=== PATIENT | male | born 1980 | race Caucasian/White ===

== ENCOUNTER 2016-11-29 09:18 | Inpatient (IN) | payer BC ==
[2016-11-29] MEDS ORDERED: Ibuprofen 200 MG TAB PO PRN (09:47)
[2016-11-29 09:57] VITALS: BMI 20.2
[2016-11-29] MEDS ORDERED: DIPHENHYDRAMINE HCL IVPB SCH (10:15)
[2016-11-29] MEDS ORDERED: SODIUM CHLORIDE 0.9% IVP SCH (10:15)
[2016-11-29] MEDS ORDERED: SODIUM CHLORIDE IVPB SCH (10:15)
[2016-11-29] MEDS ORDERED: RITUXIMAB IVPB SCH (10:15)
[2016-11-29] MEDS ORDERED: SODIUM CHLORIDE 0.9% IVPB SCH (10:15)
[2016-11-29] MEDS ORDERED: Famotidine/PF 20 mg/2ml Vial SLOW IVP SCH (10:15)
[2016-11-29] MEDS ORDERED: DEXAMETHASONE IVP SCH (10:15)
[2016-11-29] MEDS ORDERED: ONDANSETRON IVP SCH (10:15)
[2016-11-29] MEDS ORDERED: ADMIXTURE FEE IVPB SCH (10:15)
[2016-11-29] MEDS ORDERED: predniSONE 20 MG TAB PO SCH (10:45)
[2016-11-29] MEDS ORDERED: Ondansetron HCl/PF 8 MG in Sodium Chloride 0.9% 50 ML IVPB PRN (11:21)
[2016-11-29] MEDS ORDERED: Ondansetron ODT 8 MG TAB PO PRN (11:21)
[2016-11-29] MEDS ORDERED: Ondansetron ODT 4 MG TAB PO PRN (11:21)
[2016-11-29 11:36] LABS: #Lymphocytes 1.5 thou/uL (1.20-3.40); #Monocytes 0.3 thou/uL (0.11-0.59); #Neutrophils 2.6 thou/uL (1.40-6.50); %Basophils 0.4 % (0.0-1.0); %Eosinophils 0.7 % (0.0-10.0); %Lymphocytes 34.1 % (21.0-51.0); %Monocytes 7.5 % (0.0-10.0); Hematocrit 45.5 % (42.0-52.0); Mean Platelet Volume 6.6 fL (7.4-10.4); Red Blood Cell (RBC) Count 4.71 mill/uL (4.70-6.10); White Blood Cell (WBC) Count 4.5 thou/uL (4.8-10.8)
[2016-11-29] MEDS: Sulfameth/Trimethoprim DS 800-160mg TAB PO SCH (11:42)
[2016-11-29 12:08] LABS: ALT (SGPT) 14 U/L (8-55); AST (SGOT) 22 U/L (5-34); Alkaline Phosphatase 49 U/L (40-150); Anion Gap 13 mmol/L (10-20); BUN (Urea Nitrogen) 12 mg/dL (8.9-20.6); Bilirubin, Total 0.9 mg/dL (0.2-1.2); Calc. Creatinine Clearance 137 mL/min (70-130); Calcium 9.5 mg/dL (7.8-10.44); Carbon Dioxide 24 mmol/L (22-29); Chloride 106 mmol/L (98-107); Estimated GFR-MDRD Greater than 90; Globulin 3.3 g/dL (2.4-3.5); LDH 213 U/L (125-220); Protein, Total 7.8 g/dL (6.0-8.3)
--- NOTE | 2016-11-29 12:18 | HP ---
REASON FOR ADMISSION: Diffuse large B-cell lymphoma. PRIMARY ONCOLOGIST: Jason Asif M.D. HISTORY OF PRESENT ILLNESS: Mr. Wilkinson is a 36-year-old male with a new diagnosis of HIV relate d diffuse large B-cell lymphoma. He has a 1-year history of stable right axillary adenopathy with n o fever, chills or night sweats. He has a history of HIV and has been on antiretroviral treatment s 2012, his recent CD4 count was greater than 500. A biopsy of the right axillary lymph node was done on 11/04/[address] Guo. It was diagnostic for diffuse large B-cell lymphoma with extens nannette necrosis. Ki-67 fraction was greater than 90%. On 11/11/2016, a CT scan of the chest, abdomen, and pelvis showed right axillary adenopathy measuring up to 5.3 cm at the maximum dimension. There were no other significant findings. The patient then had a PET scan performed, which confirmed the right axillary lymphadenopathy. There was some increased intake in the right palatine tonsil with a maximum SUV of 11.1. There was an increased intake of the left palatine tonsil measuring with a m aximum SUV of 4.0. The patient will be admitted today for chemotherapy treatment regimen, called EP OCH-R. PAST MEDICAL HISTORY: 1. Newly diagnosed diffuse large B-cell lymphoma. 2. Human immunodeficiency virus positive in 2012 with excellent control. 3. Mononucleosis in 2011. PAST SURGICAL HISTORY: 1. Right axillary biopsy. 2. MediPort placement. ALLERGIES: TYLENOL. HOME MEDICATIONS: Odefsey daily. FAMILY HISTORY: The patient's sister had breast cancer at age of 32 and is . Both his gran dmother and grandfather had lung cancer. SOCIAL HISTORY: Single, has no children, lives alone. No alcohol, tobacco or illicit drug use. REVIEW OF SYSTEMS: CONSTITUTIONAL: No fever, chills, night sweats, recent weight loss or gain. EYES: No blurred or double vision. ENT: No pain, hoarseness, sore throat, or dysphagia. CARDIOVASCULAR: No chest pain, palpitations or syncope. RESPIRATORY: No shortness of breath, dyspnea on exertion or orthopnea. GASTROINTESTINAL: No nausea, vomiting, diarrhea, constipation or abdominal pain. GENITOURINARY: No dysuria or hematuria. MUSCULOSKELETAL: No joint or back pain. SKIN: No rash or pruritus. HEMATOLOGIC: No bleeding, bruising or clotting. NEUROLOGIC: No weakness, headache, numbness, tingling or seizure activity. LYMPHATIC: Positive for a lump in his right armpit. PHYSICAL EXAMINATION: VITAL SIGNS: Temperature is 98.0, pulse is 91, respiratory rate 18, BP is 126/75. He is 100% on ro om air. GENERAL: Well-developed, well-nourished male in no acute distress. HEENT: Normocephalic, atraumatic. Pupils equal and reactive to light. NECK: Supple without JVD or masses. CARDIOVASCULAR: Regular rate and rhythm. LUNGS: Clear to auscultation. ABDOMEN: Soft, nontender, bowel sounds are positive. There is no organomegaly. EXTREMITIES: No clubbing, cyanosis or edema. SKIN: No rash. HEMATOLOGIC: No petechia or purpura. LYMPH: He has right axillary lymphadenopathy. NEUROLOGICAL: Nonfocal. PSYCHIATRIC: The patient is alert and oriented and appropriate. PERTINENT LABORATORY AND X-RAYS: Pending. ASSESSMENT: 1. Diffuse large B-cell lymphoma. 2. Human immunodeficiency virus positive. DISCUSSION: The patient will begin chemotherapy today. He will be placed on prophylactic Valtrex d aily. He will also have Bactrim on Tuesday, Tuesday, and Tuesday. This is his recommendation of Dr Kelly Gonzalez. We will notify Dr. Gonzalez of his admission. He can be out of bed as tolerated and have a r egular diet. We will add oral antiemetics and Motrin for pain. This treatment regimen is a 5-day r egimen, anticipate discharge on Tuesday once completed.
[2016-11-29] MEDS: SODIUM CHLORIDE 0.9% IVPB SCH (20:30)
[2016-11-29] MEDS: VINCRISTINE SULFATE IVPB SCH (20:30)
[2016-11-29] MEDS: DOXORUBICIN HCL IVPB SCH (20:30)
--- NOTE | 2016-11-29 22:30 | CON ---
DATE OF CONSULTATION: 11/29/2016 HISTORY OF PRESENT ILLNESS: A 36-year-old known to us from prior visits, mostly in the clinic, who has a history of asymptomatic HIV infection for a few years with excellent adherence to antiretrovir al therapy and recently diagnosed with large cell non-Hodgkin's lymphoma. This was identified for r ight axillary lymph node. Patient has completed workup with a PET scan, which showed increased FDG localization in the right axillary and bilateral palatine tonsil lymph nodes, left neck. The patien t had an echocardiogram in preparation for chemotherapy, which showed normal ejection fraction and n ormal LV function, otherwise. The patient was admitted for initiation of chemotherapy. He denies h eadaches, visual symptoms, sore throat, odynophagia, dysphagia, no chest pain, cough or sputum produ ction. No abdominal pain or diarrhea. No genitourinary symptoms. No neurological symptoms. PAST MEDICAL HISTORY: Includes HIV seropositive status, unsuccessful antiretroviral therapy for mor e than 2 years now. He is currently receiving Odefsey. Patient never smoker. PAST SURGICAL HISTORY: Axillary lymph node biopsy, MediPort placement. ALLERGIES: TYLENOL, ACETAMINOPHEN. HOME MEDICATIONS: Odefsey and currently on Bactrim and Valtrex. FAMILY HISTORY: Noncontributory. PHYSICAL EXAMINATION: VITAL SIGNS: Essentially normal. He is afebrile. SKIN: The incision of the right axilla is not remarkable having healed properly. No other skin les ions noted. Peripheral IV access. No Long catheter. No lymphadenopathy other than the axillary r egion. HEENT: Ocular movements are conjugate. Sclerae white. Oral cavity normal. NECK: Supple. LUNGS: Symmetric clear breath sounds. HEART: S1, S2, regular rate. No S3, S4. ABDOMEN: Soft, not distended or tender. No ascites. No bladder distention. EXTREMITIES: No joint inflammatory activity. He moves extremities equally. NEUROLOGIC: Cognitive function appears to be intact. LABORATORY DATA: White cell count 4.5, hemoglobin 15.6, platelets 179 with normal differential. Ch emistry with glucose 116, otherwise normal. His last CD4 cell count from October was 578, less than 20. ASSESSMENT: Longstanding human immunodeficiency virus infection, on antiretroviral therapy with sammy quate viremia suppression and now newly diagnosed large cell non-Hodgkin's lymphoma, starting chemot herapy. DISCUSSION: Patient will continue his antiretroviral therapy with Odefsey as well as Bactrim and Va ltrex prophylaxis and follow through with this course of chemotherapy.
[2016-11-30] MEDS: ODEFSEY PO SCH (08:44)
[2016-11-30] MEDS: predniSONE 20 MG TAB PO SCH (08:45)
[2016-11-30] MEDS: Ondansetron 2MG/ML MDV 10 MG in Sodium Chloride 0.9% 50 ML IVP SCH (17:48)
[2016-11-30] MEDS: VINCRISTINE SULFATE IVPB SCH (23:05)
[2016-11-30] MEDS: DOXORUBICIN HCL IVPB SCH (23:05)
[2016-11-30] MEDS: SODIUM CHLORIDE 0.9% IVPB SCH (23:05)
[2016-12-01] MEDS: Sulfameth/Trimethoprim DS 800-160mg TAB PO SCH (09:53)
[2016-12-01] MEDS: predniSONE 20 MG TAB PO SCH (09:53)
[2016-12-01] MEDS: ODEFSEY PO SCH (10:27)
[2016-12-01] MEDS ORDERED: Polyethylene Glycol 3350 17 GM Packet PO PRN (14:16)
[2016-12-01] MEDS: Ondansetron 2MG/ML MDV 10 MG in Sodium Chloride 0.9% 50 ML IVP SCH (16:35)
[2016-12-01] MEDS: SODIUM CHLORIDE 0.9% IVPB SCH (21:39)
[2016-12-01] MEDS: VINCRISTINE SULFATE IVPB SCH (21:39)
[2016-12-01] MEDS: DOXORUBICIN HCL IVPB SCH (21:39)
--- NOTE | 2016-12-02 06:22 | CON ---
DATE OF CONSULTATION: 12/01/2016 REASON FOR CONSULTATION: The patient was seen in consultation by Dr. Asif for evaluation of tons il mass. BRIEF HISTORY: This gentleman with a B-cell lymphoma, currently undergoing chemotherapy. On his PE T scan, there was concern for possible metabolic activity in the tonsils bilaterally. The patient h as complaint of no oropharyngeal symptoms or history. He had a history of tonsillitis when he was y ounger. Otherwise, no dysphagia, pain or other concerning areas. PAST MEDICAL HISTORY: 1. HIV. 2. B-cell lymphoma. PAST SURGICAL HISTORY: Excisional biopsies performed. REVIEW OF SYSTEMS: General: He has had mild amount of weight loss and night chills, otherwise no f karo. Cardiovascular: No chest pain, orthopnea, or dyspnea. Pulmonary: No cough, wheeze or hemo ptysis. Hematologic: No history of bleeding disorders. PHYSICAL EXAMINATION: GENERAL: The patient is resting comfortably in bed. ORAL CAVITY AND OROPHARYNX: Voice is clear. The oral cavity and oropharynx shows no obvious mucosa l lesions. The tonsils are 1+ or confined within the tonsillar fossa bilaterally. The tonsil crypt s are pink and appeared to be normal. Palpation of the tonsil suggests no firm mass and does not el icit any pain. Floor of mouth and base of tongue is healthy. NECK: No lymphadenopathy or masses. NOSE: Nasal cavity is clear. EARS: TMs intact. Middle ears well aerated. ASSESSMENT AND PLAN: B-cell lymphoma, undergoing chemotherapy. I discussed with the patient that i s is more likely to have a lymphoma lesion located in the tonsils due to his clinical exam; however, I discussed with him that tonsillectomy as biopsy would be the only definitive diagnosis. This wou ld require him stopping his current chemotherapy. He chooses to proceed with just elective observat ion of the tonsils at this point. He will continue with his chemotherapy regimen and he will follow up with us for a clinical observation after he is released from the hospital which [place] w [place].
[2016-12-02] MEDS: predniSONE 20 MG TAB PO SCH (10:25)
[2016-12-02] MEDS: ODEFSEY PO SCH (10:26)
[2016-12-02] MEDS: Ondansetron 2MG/ML MDV 10 MG in Sodium Chloride 0.9% 50 ML IVP SCH (16:27)
[2016-12-02] MEDS: VINCRISTINE SULFATE IVPB SCH (21:14)
[2016-12-02] MEDS: SODIUM CHLORIDE 0.9% IVPB SCH (21:14)
[2016-12-02] MEDS: DOXORUBICIN HCL IVPB SCH (21:14)
[2016-12-03] MEDS: predniSONE 20 MG TAB PO SCH (08:37)
[2016-12-03] MEDS: Sulfameth/Trimethoprim DS 800-160mg TAB PO SCH (08:37)
[2016-12-03] MEDS: ODEFSEY PO SCH (08:38)
[2016-12-03] MEDS ORDERED: CYCLOPHOSPHAMIDE IVPB SCH (16:00)
[2016-12-03] MEDS ORDERED: SODIUM CHLORIDE 0.9% IVPB SCH (16:00)
[2016-12-03] MEDS ORDERED: Palonosetron HCl 0.25 MG in Sodium Chloride 0.9% 50 ML IVPB SCH (16:00)
[2016-12-03] MEDS ORDERED: Pegfilgrastim 6 MG/0.6 ML Delivery Kit SQ SCH (16:00)
[2016-12-04] MEDS: ODEFSEY PO SCH (08:39)
[2016-12-04 11:32] VITALS: BP 110/73; TEMP 98.8
--- NOTE | 2016-12-04 14:17 | DIS ---
DATE OF ADMISSION: 11/29/2016 DATE OF DISCHARGE: 12/04/2016 REASON FOR ADMISSION: Inpatient chemotherapy consisting of EPOCH/R, dose adjusted for HIV related l ymphoma. HOSPITAL COURSE: The patient is a 36-year-old man with HIV-related diffuse large B-cell lymphoma, a dmitted for inpatient chemotherapy consisting of infusional EPOCH/R, dose adjusted. He was treated in the usual fashion with antiemetics and fluids. He tolerated treatment extremely well with no sig nificant side effects. He was seen in consultation by Dr. Jorge Hernandes for PET positive tonsil. N o significant findings on physical exam. DISCHARGE DISPOSITION: The patient will go home on Neulasta kit, in which we will deliver Neulasta growth factor tomorrow. He will be seen in the office on next Tuesday for PE and CBC. DISCHARGE ACTIVITY: Normal as tolerated. DISCHARGE DIET: Regular as tolerated. DISCHARGE PROGNOSIS: Good.
== END 2016-12-04 12:29 | disposition home or self-care (01) | DRG 846 ==
LOC: ONC 09:18
PROVIDERS: ADMIT Internal Medicine Hematology & Oncology; ATTEND Internal Medicine Hematology & Oncology
DX: Z51.11 Encounter for antineoplastic chemotherapy (principal); B20 Human immunodeficiency virus [HIV] disease; C83.34 Diffuse large B-cell lymphoma, lymph nodes of axilla and upper limb; Z80.3 Family history of malignant neoplasm of breast; Z80.1 Family history of malignant neoplasm of trachea, bronchus and lung; Z88.6 Allergy status to analgesic agent
CPT/HCPCS: 80053; 83615; 84550; 85025; 96377; J1100; J1200; J1642; J2405; J2469; J2505; J7050; J7506; J9000; J9070; J9181; J9310; J9370; S0028

== ENCOUNTER 2016-12-20 07:23 | Inpatient (IN) | payer BC ==
[2016-12-20 07:49] VITALS: BMI 20.8
[2016-12-20] MEDS ORDERED: Famotidine/PF 20 MG in Sodium Chloride 0.9% 50 ML IVPB SCH (08:00)
[2016-12-20] MEDS ORDERED: DIPHENHYDRAMINE HCL IVPB SCH (08:00)
[2016-12-20] MEDS ORDERED: ONDANSETRON IVP SCH (08:00)
[2016-12-20] MEDS ORDERED: ADMIXTURE FEE CHEMO IVPB SCH (08:00)
[2016-12-20] MEDS ORDERED: SODIUM CHLORIDE 0.9% IVP SCH (08:00)
[2016-12-20] MEDS ORDERED: [UNRECOGNIZED DRUG - OTHER] IVPB SCH (08:00)
[2016-12-20] MEDS ORDERED: DEXAMETHASONE IVP SCH (08:00)
[2016-12-20] MEDS ORDERED: Rituximab 500 MG, Rituximab 250 MG in Sodium Chloride 0.9% 500 ML IVPB SCH (08:15)
[2016-12-20 08:36] LABS: #Lymphocytes 1.3 thou/uL (1.20-3.40); #Monocytes 0.4 thou/uL (0.11-0.59); #Neutrophils 2.8 thou/uL (1.40-6.50); %Basophils 0.4 % (0.0-1.0); %Eosinophils 0.6 % (0.0-10.0); %Monocytes 9.6 % (0.0-10.0); Hematocrit 41.5 % (42.0-52.0); Mean Platelet Volume 5.7 fL (7.4-10.4); Red Blood Cell (RBC) Count 4.29 mill/uL (4.70-6.10); White Blood Cell (WBC) Count 4.6 thou/uL (4.8-10.8)
[2016-12-20 09:04] LABS: ALT (SGPT) 17 U/L (8-55); AST (SGOT) 17 U/L (5-34); Alkaline Phosphatase 49 U/L (40-150); Anion Gap 12 mmol/L (10-20); BUN (Urea Nitrogen) 12 mg/dL (8.9-20.6); Bilirubin, Total 0.6 mg/dL (0.2-1.2); Calc. Creatinine Clearance 126 mL/min (70-130); Carbon Dioxide 26 mmol/L (22-29); Chloride 105 mmol/L (98-107); Estimated GFR-MDRD Greater than 90; Globulin 2.6 g/dL (2.4-3.5); LDH 160 U/L (125-220); Protein, Total 6.7 g/dL (6.0-8.3); Uric Acid 6.1 mg/dL (3.5-7.2)
[2016-12-20] MEDS ORDERED: Ibuprofen 200 MG TAB PO PRN (09:29)
[2016-12-20] MEDS: Sulfameth/Trimethoprim SS 400-80MG TAB PO SCH (10:08)
--- NOTE | 2016-12-20 12:52 | HP ---
REASON FOR ADMISSION: Chemotherapy for diffuse large B-cell lymphoma. PRIMARY ONCOLOGIST: Dr. Jason Asif. HISTORY OF PRESENT ILLNESS: Mr. Wilkinson is a 36-year-old male who has completed one cycle of EPO CH-R for diffuse large B cell lymphoma. He was diagnosed with lymphoma in 10/2016 and he had a CT s can of the chest, abdomen, and pelvis, which showed right axillary adenopathy. Biopsy confirmed dif fuse large B cell lymphoma. The patient has a history of HIV and has been on antiretroviral treatme nt since 2012, his counts have been low. He tolerated cycle 1 with minimal side effects. He did reno ve some nausea and overall fatigue. Today he is being admitted for cycle 2 as a 5-day regimen. He denies any chest pain or shortness of breath. No abdominal discomfort or problems. PAST MEDICAL HISTORY: 1. Diffuse large B cell lymphoma. 2. HIV. 3. History of mononucleosis. PAST SURGICAL HISTORY: 1. Right axillary biopsy. 2. MediPort placement. ALLERGIES: TYLENOL. HOME MEDICATIONS: 1. Odefsey tablet 1 daily. 2. Zofran p.r.n. 3. Bactrim-DS daily. 4. Valtrex daily. 5. Phenergan p.r.n. FAMILY HISTORY: Sister had breast cancer at the age of 32 and just , both his grandmother a nd grandfather had lung cancer. SOCIAL HISTORY: Single, no children, lives alone. No alcohol, tobacco or illicit drug use. REVIEW OF SYSTEMS: Twelve-point review of systems is negative except for noted in HPI. PHYSICAL EXAMINATION: VITAL SIGNS: Temperature is 98.1, pulse is 81, respiratory rate 18, BP is 112/69, he is 98% on room air. GENERAL: Well-developed, well-nourished male in no acute distress. HEENT: Normocephalic, atraumatic. Pupils equal and reactive to light. NECK: Supple with without JVD or mass. CARDIOVASCULAR: Regular rate and rhythm. LUNGS: Clear to auscultation. ABDOMEN: Soft, nontender, bowel sounds are positive. EXTREMITIES: No clubbing, cyanosis or edema. SKIN: No rash. HEMATOLOGIC: No petechia or purpura. NEUROLOGIC: Nonfocal. PSYCHIATRIC: The patient is alert and oriented and appropriate. PERTINENT LABORATORY DATA AND X-RAYS: His current WBCs 4.6, hemoglobin 14.2, hematocrit 41.5, plate let count 243,000. Sodium is 139, potassium 3.8, chloride 105, CO2 is 26, BUN 12, creatinine 0.84, uric acid 6.1, calcium 9, total bilirubin 0.6, AST 70, ALT 17, alkaline phosphatase 49. LDH is 160, serum total protein 6.7, albumin 4.1, globulin 2.6. ASSESSMENT: 1. Diffuse large B cell lymphoma. The patient will begin his 5-day regimen today. He will be disc harged on Neulasta once it is completed. 2. Human immunodeficiency virus. We will continue his Odefsey daily. He is on prophylactic Valtre x and Bactrim. Estimated time of stay is 5-6 days.
[2016-12-20] MEDS ORDERED: Ondansetron ODT 4 MG TAB PO PRN (13:52)
[2016-12-20] MEDS ORDERED: Ondansetron HCl/PF 4 MG/2 ML Vial IVP PRN (13:52)
[2016-12-20] MEDS: SODIUM CHLORIDE 0.9% IVPB SCH (20:11)
[2016-12-20] MEDS: VINCRISTINE SULFATE IVPB SCH (20:11)
[2016-12-20] MEDS: DOXORUBICIN HCL IVPB SCH (20:11)
[2016-12-20] MEDS ORDERED: FLU VACC QS2017-18 36 mo. & older 0.5 ML SYRINGE IM ONE (21:00)
[2016-12-21] MEDS: predniSONE 20 MG TAB PO SCH (07:48)
[2016-12-21] MEDS: predniSONE 50 MG TAB PO SCH (07:48)
[2016-12-21] MEDS: ODEFSEY PO SCH (07:49)
[2016-12-21] MEDS: ONDANSETRON IVP SCH (21:29)
[2016-12-21] MEDS: ADMIXTURE FEE CHEMO IVP SCH (21:29)
[2016-12-21] MEDS: [UNRECOGNIZED DRUG - OTHER] IVP SCH (21:29)
[2016-12-22] MEDS: VINCRISTINE SULFATE IVPB SCH (00:09)
[2016-12-22] MEDS: DOXORUBICIN HCL IVPB SCH (00:09)
[2016-12-22] MEDS: SODIUM CHLORIDE 0.9% IVPB SCH (00:09)
[2016-12-22] MEDS: predniSONE 50 MG TAB PO SCH (10:05)
[2016-12-22] MEDS: ODEFSEY PO SCH (10:06)
[2016-12-22] MEDS: predniSONE 20 MG TAB PO SCH (10:06)
[2016-12-22] MEDS: Sulfameth/Trimethoprim SS 400-80MG TAB PO SCH (10:06)
[2016-12-22] MEDS: [UNRECOGNIZED DRUG - OTHER] IVP SCH (20:48)
[2016-12-22] MEDS: ADMIXTURE FEE CHEMO IVP SCH (20:48)
[2016-12-22] MEDS: ONDANSETRON IVP SCH (20:48)
[2016-12-23] MEDS: VINCRISTINE SULFATE IVPB SCH (02:38)
[2016-12-23] MEDS: SODIUM CHLORIDE 0.9% IVPB SCH (02:38)
[2016-12-23] MEDS: DOXORUBICIN HCL IVPB SCH (02:38)
[2016-12-23] MEDS ORDERED: [UNRECOGNIZED DRUG - OTHER] IVP SCH (09:00)
[2016-12-23] MEDS ORDERED: ONDANSETRON IVP SCH (09:00)
[2016-12-23] MEDS ORDERED: ADMIXTURE FEE CHEMO IVP SCH (09:00)
[2016-12-23] MEDS: predniSONE 50 MG TAB PO SCH (09:34)
[2016-12-23] MEDS: predniSONE 20 MG TAB PO SCH (09:34)
[2016-12-23] MEDS: ODEFSEY PO SCH (09:35)
[2016-12-23] MEDS ORDERED: Polyethylene Glycol 3350 17 GM Packet PO PRN (11:05)
[2016-12-23] MEDS ORDERED: FLU VACC QS2017-18 36 mo. & older 0.5 ML SYRINGE IM ONE (17:00)
[2016-12-24] MEDS: VINCRISTINE SULFATE IVPB SCH (03:45)
[2016-12-24] MEDS: DOXORUBICIN HCL IVPB SCH (03:45)
[2016-12-24] MEDS: SODIUM CHLORIDE 0.9% IVPB SCH (03:45)
[2016-12-24] MEDS ORDERED: Palonosetron HCl 0.25 MG in Sodium Chloride 0.9% 50 ML IVPB SCH (07:00)
[2016-12-24] MEDS ORDERED: PALONOSETRON HCL 0.05 MG/ML 5 ML VIAL IVP SCH ×2 (08:00→08:30)
[2016-12-24] MEDS ORDERED: Pegfilgrastim 6 MG/0.6 ML Delivery Kit SQ SCH (08:45)
[2016-12-24] MEDS ORDERED: CYCLOPHOSPHAMIDE IVPB SCH (08:45)
[2016-12-24] MEDS ORDERED: SODIUM CHLORIDE 0.9% IVPB SCH (08:45)
[2016-12-24] MEDS ORDERED: Polyethylene Glycol 3350 17 GM Packet PO SCH (09:00)
[2016-12-24] MEDS: predniSONE 50 MG TAB PO SCH (09:15)
[2016-12-24] MEDS: predniSONE 20 MG TAB PO SCH (09:15)
[2016-12-24] MEDS: Sulfameth/Trimethoprim SS 400-80MG TAB PO SCH (09:16)
[2016-12-24] MEDS: ODEFSEY PO SCH (09:17)
[2016-12-24] MEDS ORDERED: diphenhydrAMINE HCl 25 MG CAP PO PRN (11:38)
[2016-12-24] MEDS ORDERED: diphenhydrAMINE HCl 50 MG/ML 1 ML VIAL IVP PRN (11:38)
--- NOTE | 2016-12-24 22:21 | DIS ---
PRIMARY REASON FOR ADMISSION: Chemotherapy for diffuse large B cell lymphoma. ONCOLOGIST: Jason Asif MD HOSPITAL COURSE: Mr. Wilkinson is a 36-year-old male, who was diagnosed with diffuse large B cell lymphoma. He was admitted on Tuesday12/20/2016, for a 5- day course of chemotherapy consisting of Rituxan, Adriamycin, and vincristine, etoposide and Cytoxan. He tolerated chemotherapy well with only occasional nausea and constipation. His chemotherapy will be completed early tomorrow morning and the patient will be discharged with an Onpro Neulasta kit. He will follow up in the outpatient setting with Dr. Jason Asif on Tuesday. He will continue his home medications including Odefsey, Valtrex, Bactrim , and Compazine, Zofran, and Phenergan p.r.n. for nausea. The patient will be discharged home. His activity is ad-dom. He has no restrictions in his diet. He will be on a regular diet. He will follow up with Dr. Asif next week. [facility]
[2016-12-25 07:31] VITALS: BP 117/77; TEMP 97.9
[2016-12-25] MEDS: ODEFSEY PO SCH (07:50)
[2016-12-25] MEDS: predniSONE 50 MG TAB PO SCH (08:08)
[2016-12-25] MEDS: predniSONE 20 MG TAB PO SCH (08:08)
== END 2016-12-25 08:10 | disposition home or self-care (01) | DRG 846 ==
LOC: ONC 07:23
PROVIDERS: ADMIT Internal Medicine Hematology & Oncology; ATTEND Internal Medicine Hematology & Oncology
DX: Z51.11 Encounter for antineoplastic chemotherapy (principal); B20 Human immunodeficiency virus [HIV] disease; C83.34 Diffuse large B-cell lymphoma, lymph nodes of axilla and upper limb; Z95.828 Presence of other vascular implants and grafts; Z79.899 Other long term (current) drug therapy
CPT/HCPCS: 80053; 83615; 84550; 85025; 90471; 90682; 90732; 96377; A4216; G0008; G0009; J1100; J1200; J1642; J2405; J2469; J2505; J7050; J7506; J9000; J9070; J9181; J9310; J9370; Q0162; Q2036; S0028

== ENCOUNTER 2017-01-10 07:36 | Inpatient (IN) | payer BC ==
[2017-01-10 07:56] VITALS: BMI 21.1
[2017-01-10] MEDS ORDERED: ADMIXTURE FEE IVPB SCH ×4 (08:00→08:30)
[2017-01-10] MEDS ORDERED: DEXAMETHASONE IVP SCH (08:00)
[2017-01-10] MEDS ORDERED: ONDANSETRON IVP SCH (08:00)
[2017-01-10] MEDS ORDERED: DIPHENHYDRAMINE IVPB SCH (08:00)
[2017-01-10] MEDS ORDERED: ADMIXTURE FEE IVP SCH (08:00)
[2017-01-10] MEDS ORDERED: SODIUM CHLORIDE IVPB SCH ×3 (08:00→08:15)
[2017-01-10] MEDS ORDERED: [UNRECOGNIZED DRUG - OTHER] IVP SCH (08:00)
[2017-01-10] MEDS ORDERED: RITUXIMAB IVPB SCH (08:00)
[2017-01-10] MEDS ORDERED: Famotidine/PF 20 MG, Admixture Fee 1 EACH in Sodium Chloride 0.9% 50 ML IVPB SCH (08:00)
[2017-01-10] MEDS ORDERED: ETOPOSIDE IVPB SCH (08:15)
[2017-01-10] MEDS ORDERED: DOXORUBICIN IVPB SCH (08:30)
[2017-01-10] MEDS ORDERED: [UNRECOGNIZED DRUG - OTHER] IVPB SCH (08:30)
[2017-01-10] MEDS ORDERED: VINCRISTINE SULFATE IVPB SCH (08:30)
[2017-01-10] MEDS ORDERED: FLU VACC QS2017-18 36 mo. & older 0.5 ML SYRINGE IM ONE (08:45)
[2017-01-10 09:22] LABS: ALT (SGPT) 37 U/L (8-55); AST (SGOT) 23 U/L (5-34); Alkaline Phosphatase 56 U/L (40-150); Anion Gap 11 mmol/L (10-20); BUN (Urea Nitrogen) 10 mg/dL (8.9-20.6); Bilirubin, Total 0.5 mg/dL (0.2-1.2); Calc. Creatinine Clearance 132 mL/min (70-130); Calcium 8.9 mg/dL (7.8-10.44); Carbon Dioxide 27 mmol/L (22-29); Chloride 104 mmol/L (98-107); Estimated GFR-MDRD Greater than 90; Globulin 2.9 g/dL (2.4-3.5); Protein, Total 6.8 g/dL (6.0-8.3)
[2017-01-10 09:23] LABS: Uric Acid 5.7 mg/dL (3.5-7.2)
[2017-01-10 09:41] LABS: Hematocrit 37.8 % (42.0-52.0); Mean Platelet Volume 6.1 fL (7.4-10.4); White Blood Cell (WBC) Count 4.6 thou/uL (4.8-10.8)
[2017-01-10 09:42] LABS: Band 2 % (5-11); Metamyelocyte 1 % (0-0); Neutrophil 61 % (42-75); Reactive Lymphocytes 2 % (0-10)
[2017-01-10] MEDS ORDERED: Senokot 8.6 MG TAB PO PRN (11:21)
[2017-01-10] MEDS ORDERED: Pepto Bismol Chew TAB PO PRN (11:21)
[2017-01-10] MEDS: Ibuprofen 200 MG TAB PO PRN (11:42)
--- NOTE | 2017-01-10 12:30 | HP ---
REASON FOR ADMISSION: Chemotherapy for diffuse large B cell lymphoma. PRIMARY ONCOLOGIST: Dr. Jason Asif HISTORY OF PRESENT ILLNESS: Mr. Wilkinson is a pleasant 36-year-old gentleman who was diagnosed wi th diffuse large B cell lymphoma in 10/2016. He was started on standard chemotherapy consisting of Epoch-R. He has had 2 cycles with minimal complications. He presents today for cycle 3. He denies any chest pain, shortness of breath. No mucositis, GI problems. He does have neuropathy in his fi ngers present since cycle 2. PAST MEDICAL HISTORY: 1. Diffuse large B cell lymphoma. 2. Human immunodeficiency virus. PAST SURGICAL HISTORY: 1. Right axillary biopsy. 2. MediPort placement. ALLERGIES: TYLENOL. HOME MEDICATIONS: 1. Odefsey C tablet 1 p.o. daily. 2. Bactrim-DS daily. 3. Valtrex 500 mg b.i.d. 4. Zofran p.r.n. 5. Phenergan p.r.n. FAMILY HISTORY: Sister had breast cancer at the age of 32 and is . Grandmother and grandfa ther had lung cancer. SOCIAL HISTORY: Single, no children, lives alone. No alcohol, tobacco or illicit drug use. REVIEW OF SYSTEMS: Twelve point review of systems is negative except for noted in HPI. PHYSICAL EXAMINATION: VITAL SIGNS: Temperature is 98.4, pulse is 74, respiratory rate 16, BP is 110/72, 96% on room air. GENERAL: Well-developed, well-nourished male in no acute distress. HEENT: Normocephalic, atraumatic. Pupils equal and reactive to light. He has alopecia. NECK: Supple without JVD or masses. CARDIOVASCULAR: Regular rate and rhythm. LUNGS: Clear to auscultation. ABDOMEN: Soft, nontender, bowel sounds are positive. There is no organomegaly. EXTREMITIES: No clubbing, cyanosis or edema. SKIN: No rash. HEMATOLOGIC: No petechia or purpura. NEUROLOGIC: Nonfocal. PSYCHIATRIC: The patient is alert and oriented and appropriate. PERTINENT LABORATORY AND X-RAYS: Current WBCs are 4.6, hemoglobin 13.2, hematocrit 37.8, platelet c ount is 198,000. He has 61% neutrophils, 26% lymphocytes. Sodium 138, potassium 4.0, chloride 104, CO2 is 27, BUN is 10, creatinine 0.81. Uric acid is 5.7, calcium 8.9, total bilirubin is 0.5, AST is 23, ALT is 37, alkaline phosphatase is 56, LDH is 173, serum total protein 6.8, albumin 3.9, glob ulin 2.9. No radiology. IMPRESSION: 1. Diffuse large B cell lymphoma. The patient will begin a 5-day cycle of Epoch-R and be discharge d with Onpro Neulasta. 2. Human immunodeficiency virus. We will continue his oral medication daily and he is on prophylac tic Valtrex and Bactrim. Estimated length of stay is 5-6 days.
[2017-01-10] MEDS: valACYclovir 500 MG TAB PO SCH (20:48)
[2017-01-11] MEDS: valACYclovir 500 MG TAB PO SCH ×2 (08:37→21:22)
[2017-01-11] MEDS: ODEFSEY PO SCH (08:37)
[2017-01-11] MEDS: predniSONE 20 MG TAB PO SCH (09:35)
[2017-01-11] MEDS: ADMIXTURE FEE IVP SCH (20:09)
[2017-01-11] MEDS: ONDANSETRON IVP SCH (20:09)
[2017-01-11] MEDS: SODIUM CHLORIDE IVP SCH (20:09)
[2017-01-11] MEDS: SODIUM CHLORIDE IVPB SCH (20:52)
[2017-01-11] MEDS: ADMIXTURE FEE IVPB SCH ×2 (20:52→22:14)
[2017-01-11] MEDS: ETOPOSIDE IVPB SCH (20:52)
[2017-01-11] MEDS: VINCRISTINE SULFATE IVPB SCH (22:14)
[2017-01-11] MEDS: [UNRECOGNIZED DRUG - OTHER] IVPB SCH (22:14)
[2017-01-11] MEDS: DOXORUBICIN IVPB SCH (22:14)
[2017-01-12] MEDS: predniSONE 20 MG TAB PO SCH (09:11)
[2017-01-12] MEDS: ODEFSEY PO SCH (09:12)
[2017-01-12] MEDS: valACYclovir 500 MG TAB PO SCH ×2 (09:12→20:20)
[2017-01-12] MEDS: Sulfameth/Trimethoprim DS 800-160mg TAB PO SCH (09:12)
[2017-01-12] MEDS: Polyethylene Glycol 3350 17 GM Packet PO PRN ×2 (14:20→20:20)
[2017-01-12] MEDS: Promethazine 25 MG TAB PO PRN (19:31)
[2017-01-12] MEDS: SODIUM CHLORIDE IVP SCH (23:20)
[2017-01-12] MEDS: ADMIXTURE FEE IVP SCH (23:20)
[2017-01-12] MEDS: ONDANSETRON IVP SCH (23:20)
[2017-01-12] MEDS: ADMIXTURE FEE IVPB SCH (23:35)
[2017-01-12] MEDS: ETOPOSIDE IVPB SCH (23:35)
[2017-01-12] MEDS: SODIUM CHLORIDE IVPB SCH (23:35)
[2017-01-13] MEDS: ADMIXTURE FEE IVPB SCH ×2 (00:42→23:31)
[2017-01-13] MEDS: VINCRISTINE SULFATE IVPB SCH (00:42)
[2017-01-13] MEDS: DOXORUBICIN IVPB SCH (00:42)
[2017-01-13] MEDS: [UNRECOGNIZED DRUG - OTHER] IVPB SCH (00:42)
[2017-01-13] MEDS: valACYclovir 500 MG TAB PO SCH ×2 (09:04→20:47)
[2017-01-13] MEDS: ODEFSEY PO SCH (09:04)
[2017-01-13] MEDS: predniSONE 20 MG TAB PO SCH (09:06)
[2017-01-13] MEDS: Promethazine 25 MG TAB PO PRN (20:49)
[2017-01-13] MEDS: ADMIXTURE FEE IVP SCH (22:59)
[2017-01-13] MEDS: ONDANSETRON IVP SCH (22:59)
[2017-01-13] MEDS: SODIUM CHLORIDE IVP SCH (22:59)
[2017-01-13] MEDS: ETOPOSIDE IVPB SCH (23:31)
[2017-01-13] MEDS: SODIUM CHLORIDE IVPB SCH (23:31)
[2017-01-14] MEDS: DOXORUBICIN IVPB SCH (00:40)
[2017-01-14] MEDS: VINCRISTINE SULFATE IVPB SCH (00:40)
[2017-01-14] MEDS: ADMIXTURE FEE IVPB SCH (00:40)
[2017-01-14] MEDS: [UNRECOGNIZED DRUG - OTHER] IVPB SCH (00:40)
[2017-01-14] MEDS: Ondansetron HCl/PF 4 MG/2 ML Vial IVP PRN ×2 (08:13→18:26)
[2017-01-14] MEDS: valACYclovir 500 MG TAB PO SCH ×2 (08:26→22:42)
[2017-01-14] MEDS: predniSONE 20 MG TAB PO SCH (08:26)
[2017-01-14] MEDS: ODEFSEY PO SCH (08:26)
[2017-01-14] MEDS: Sulfameth/Trimethoprim DS 800-160mg TAB PO SCH (08:27)
[2017-01-14] MEDS ORDERED: ADMIXTURE FEE IVPB SCH (09:30)
[2017-01-14] MEDS ORDERED: SODIUM CHLORIDE IVPB SCH (09:30)
[2017-01-14] MEDS ORDERED: CYCLOPHOSPHAMIDE IVPB SCH (09:30)
[2017-01-14] MEDS ORDERED: Palonosetron HCl 0.25 MG, Admixture Fee 1 EACH in Sodium Chloride 0.9% 50 ML IVPB SCH (09:30)
[2017-01-14 11:52] VITALS: BP 111/62; TEMP 98.2
[2017-01-14] MEDS: Ibuprofen 200 MG TAB PO PRN (12:54)
[2017-01-15] MEDS: Pegfilgrastim 6 MG/0.6 ML Delivery Kit SQ SCH ×2 (01:26→01:27)
[2017-01-15] MEDS: Ondansetron HCl/PF 4 MG/2 ML Vial IVP PRN (01:27)
[2017-01-15] MEDS: ODEFSEY PO SCH (07:08)
--- NOTE | 2017-02-09 15:09 | DIS ---
DATE OF ADMISSION: 01/10/2017 DATE OF DISCHARGE: 01/14/2017 REASON FOR ADMISSION: Inpatient chemotherapy for large cell lymphoma. HOSPITAL COURSE: The patient was admitted for inpatient chemotherapy consisting of EPOCH-DA for larg e cell lymphoma. He was treated in the usual fashion with supportive fluids and antiemetic premedica tions. He experienced some nausea, but overall tolerated chemotherapy well. A Neulasta growth facto r kit was placed just prior to discharge. DISCHARGE DIAGNOSES: Large cell lymphoma. DISCHARGE PROGNOSIS: Good. DISCHARGE FOLLOWUP: He will be seen in the office next week for weekly CBC. DISCHARGE DIET: Regular as tolerated. DISCHARGE ACTIVITY: Up as tolerated.
== END 2017-01-15 07:41 | disposition home or self-care (01) | DRG 846 ==
LOC: ONC 07:36
PROVIDERS: ADMIT Internal Medicine Hematology & Oncology; ATTEND Internal Medicine Hematology & Oncology
PROC: 3E04305 Introduction of Other Antineoplastic into Central Vein, Percutaneous Approach (ICD-10-PCS; principal; 2017-01-10)
PROC: 3E0433Z Introduction of Anti-inflammatory into Central Vein, Percutaneous Approach (ICD-10-PCS; 2017-01-10)
DX: Z51.11 Encounter for antineoplastic chemotherapy (principal); B20 Human immunodeficiency virus [HIV] disease; C83.34 Diffuse large B-cell lymphoma, lymph nodes of axilla and upper limb; Z95.828 Presence of other vascular implants and grafts; Z92.21 Personal history of antineoplastic chemotherapy; Z79.899 Other long term (current) drug therapy
CPT/HCPCS: 80053; 83615; 84550; 85025; 96377; A4216; J1100; J1200; J1642; J2405; J2469; J2505; J7050; J7506; J9070; J9181; J9310; J9370; Q2050; S0028

== ENCOUNTER 2017-01-31 06:57 | Inpatient (IN) | payer BC ==
[2017-01-31] MEDS ORDERED: ADMIXTURE FEE IVP SCH (09:00)
[2017-01-31] MEDS ORDERED: DEXAMETHASONE IVP SCH (09:00)
[2017-01-31] MEDS ORDERED: [UNRECOGNIZED DRUG - OTHER] IVP SCH (09:00)
[2017-01-31] MEDS ORDERED: ONDANSETRON IVP SCH (09:00)
[2017-01-31] MEDS ORDERED: DOXORUBICIN IVPB SCH (09:15)
[2017-01-31] MEDS ORDERED: VINCRISTINE SULFATE IVPB SCH (09:15)
[2017-01-31] MEDS ORDERED: ADMIXTURE FEE IVPB SCH ×5 (09:15)
[2017-01-31] MEDS ORDERED: diphenhydrAMINE 50 MG, Admixture Fee 1 EACH in Sodium Chloride 0.9% 50 ML IVPB SCH (09:15)
[2017-01-31] MEDS ORDERED: [UNRECOGNIZED DRUG - OTHER] IVPB SCH (09:15)
[2017-01-31] MEDS ORDERED: Famotidine/PF 20 MG, Admixture Fee 1 EACH in Sodium Chloride 0.9% 50 ML IVPB SCH (09:15)
[2017-01-31] MEDS ORDERED: RITUXIMAB IVPB SCH ×2 (09:15)
[2017-01-31] MEDS ORDERED: ETOPOSIDE IVPB SCH (09:15)
[2017-01-31] MEDS ORDERED: DIPHENHYDRAMINE IVPB SCH (09:15)
[2017-01-31] MEDS ORDERED: SODIUM CHLORIDE IVPB SCH ×4 (09:15)
[2017-01-31] MEDS ORDERED: Polyethylene Glycol 3350 17 GM Packet PO PRN (09:30)
[2017-01-31] MEDS ORDERED: Ondansetron HCl/PF 8 MG, Admixture Fee 1 EACH in Sodium Chloride 0.9% 50 ML IVPB SCH (10:00)
[2017-01-31 10:07] LABS: #Eosinphils 0.1 thou/uL (0.0-0.7); #Lymphocytes 1.1 thou/uL (1.20-3.40); #Neutrophils 5.3 thou/uL (1.40-6.50); %Basophils 0.4 % (0.0-1.0); %Eosinophils 0.9 % (0.0-10.0); %Lymphocytes 14.6 % (21.0-51.0); %Monocytes 13.5 % (0.0-10.0); Hematocrit 36.2 % (42.0-52.0); Mean Platelet Volume 6.7 fL (7.4-10.4); Red Blood Cell (RBC) Count 3.57 mill/uL (4.70-6.10); White Blood Cell (WBC) Count 7.5 thou/uL (4.8-10.8)
[2017-01-31] MEDS: Sulfameth/Trimethoprim DS 800-160mg TAB PO SCH (10:21)
--- NOTE | 2017-01-31 11:08 | HP ---
REASON FOR ADMISSION: Diffuse large B cell lymphoma, requiring chemotherapy. PRIMARY ONCOLOGIST: Dr. Jason Asif. HISTORY OF PRESENT ILLNESS: Mr. Wilkinson is a pleasant 37-year-old gentleman who was diagnosed with diffuse large B cell lymphoma in 12/2016. He was started on standard chemotherapy consisting of EPOCH-R. He has tolerated 3 cycles well. He has had no new or progressive neuropathy. Minimal nausea. Today, he presents for cycle 4of chemotherapy. This is a 5 day regimen. PAST MEDICAL HISTORY: 1. Diffuse large B cell lymphoma. 2. Human immunodeficiency virus. PAST SURGICAL HISTORY: 1. Right axilla biopsy. 2. MediPort placement. ALLERGIES: To TYLENOL. HOME MEDICATIONS: 1. Odefsey 1 tablet daily. 2. Zofran 8 mg p.o. p.r.n. 3. Bactrim-DS 1 tablet daily. 4. Valtrex 500 mg b.i.d. FAMILY HISTORY: History of breast cancer at the age of 32 and is found . Grandfather and grandmother both had lung cancer. SOCIAL HISTORY: Single, no children, lives alone. No alcohol, tobacco or illicit drug use. REVIEW OF SYSTEMS: Constitutional: No fever, chills, night sweats, recent weight loss or gain. Eyes: No blurred or double vision. ENT: No pain, hoarseness, sore throat, or dysphagia. Cardiovascular: No chest pain, palpitations or syncope. Respiratory: No shortness breath, dyspnea on exertion or orthopnea. Gastrointestinal: No nausea, vomiting, diarrhea, constipation or abdominal pain. Genitourinary: No dysuria or hematuria. Musculoskeletal: No joint or back pain. Skin: No rash or pruritus. Hematologic: No bleeding, bruising or clotting. Neurologic: No weakness, headache, numbness, tingling or seizure activity. Psychiatric: No anxiety or depression. PHYSICAL EXAMINATION: VITAL SIGNS: Temperature is 97.9, pulse is 82, respiratory rate 18, blood pressure is 112/75, he is 99% on room air. GENERAL: Well-developed, well-nourished male in no acute distress. HEENT: Normocephalic, atraumatic. Pupils are equal and reactive to light. He has alopecia. NECK: Supple without JVD or masses. CARDIOVASCULAR: Regular rate and rhythm. LUNGS: Clear to auscultation. ABDOMEN: Soft, nontender, bowel sounds are positive. EXTREMITIES: There is no clubbing, cyanosis or edema. SKIN: No rash. HEMATOLOGIC: No petechia or purpura. NEUROLOGICAL: Grossly nonfocal. LYMPHATIC: There is no palpable lymphadenopathy. PSYCHIATRIC: The patient is alert and oriented and appropriate. PERTINENT LABORATORY AND X-RAYS: Pending. ASSESSMENT AND PLAN: 1. Diffuse large B cell lymphoma. The patient will begin day #1 of a 5-day cycle of EPOCH-R. He will be discharged home early Tuesday morning with Neulasta Onpro kit. 2. Human immunodeficiency virus. We will continue his daily oral medication as well as prophylactic Valtrex and Bactrim. Estimated length of stay is 5-6 days. [facility]TDD
[2017-01-31 11:45] LABS: ALT (SGPT) 35 U/L (8-55); AST (SGOT) 27 U/L (5-34); Alkaline Phosphatase 58 U/L (40-150); Anion Gap 10 mmol/L (10-20); BUN (Urea Nitrogen) 10 mg/dL (8.9-20.6); Bilirubin, Total 0.4 mg/dL (0.2-1.2); Calc. Creatinine Clearance 152 mL/min (70-130); Calcium 8.8 mg/dL (7.8-10.44); Carbon Dioxide 27 mmol/L (22-29); Chloride 105 mmol/L (98-107); Estimated GFR-MDRD Greater than 90; Globulin 2.7 g/dL (2.4-3.5); Protein, Total 6.7 g/dL (6.0-8.3)
[2017-01-31 14:28] VITALS: BMI 21.7
[2017-01-31] MEDS ORDERED: Ondansetron ODT 8 MG TAB PO PRN (16:08)
[2017-02-01] MEDS: ODEFSEY PO SCH (08:21)
[2017-02-01] MEDS: predniSONE 20 MG TAB PO SCH (08:22)
[2017-02-01] MEDS ORDERED: ADMIXTURE FEE IVP SCH (10:00)
[2017-02-01] MEDS ORDERED: SODIUM CHLORIDE IVP SCH (10:00)
[2017-02-01] MEDS ORDERED: ONDANSETRON IVP SCH (10:00)
[2017-02-01] MEDS: ONDANSETRON IVP SCH (18:10)
[2017-02-01] MEDS: ADMIXTURE FEE IVP SCH (18:10)
[2017-02-01] MEDS: SODIUM CHLORIDE IVP SCH (18:10)
[2017-02-01] MEDS: ADMIXTURE FEE IVPB SCH ×2 (18:43→20:14)
[2017-02-01] MEDS: ETOPOSIDE IVPB SCH (18:43)
[2017-02-01] MEDS: SODIUM CHLORIDE IVPB SCH (18:43)
[2017-02-01] MEDS: DOXORUBICIN IVPB SCH (20:14)
[2017-02-01] MEDS: [UNRECOGNIZED DRUG - OTHER] IVPB SCH (20:14)
[2017-02-01] MEDS: VINCRISTINE SULFATE IVPB SCH (20:14)
[2017-02-02] MEDS ORDERED: Promethazine HCl 25 MG/ML VIAL SLOW IVP PRN (09:56)
[2017-02-02] MEDS: Promethazine HCl 25 MG/ML VIAL SLOW IVP PRN (10:09)
[2017-02-02] MEDS: predniSONE 20 MG TAB PO SCH (10:10)
[2017-02-02] MEDS: Sulfameth/Trimethoprim DS 800-160mg TAB PO SCH (10:10)
[2017-02-02] MEDS: ODEFSEY PO SCH (10:13)
[2017-02-02] MEDS: Ondansetron HCl/PF 8 MG, Admixture Fee 1 EACH in Sodium Chloride 0.9% 50 ML IVPB SCH ×2 (17:50→23:36)
[2017-02-02] MEDS: SODIUM CHLORIDE IVP SCH (20:14)
[2017-02-02] MEDS: ONDANSETRON IVP SCH (20:14)
[2017-02-02] MEDS: ADMIXTURE FEE IVP SCH (20:14)
[2017-02-02] MEDS: ETOPOSIDE IVPB SCH (21:12)
[2017-02-02] MEDS: SODIUM CHLORIDE IVPB SCH (21:12)
[2017-02-02] MEDS: ADMIXTURE FEE IVPB SCH ×2 (21:12→22:35)
[2017-02-02] MEDS: VINCRISTINE SULFATE IVPB SCH (22:35)
[2017-02-02] MEDS: [UNRECOGNIZED DRUG - OTHER] IVPB SCH (22:35)
[2017-02-02] MEDS: DOXORUBICIN IVPB SCH (22:35)
[2017-02-03] MEDS: Ondansetron HCl/PF 8 MG, Admixture Fee 1 EACH in Sodium Chloride 0.9% 50 ML IVPB SCH ×4 (04:01→22:06)
[2017-02-03] MEDS: predniSONE 20 MG TAB PO SCH (09:51)
[2017-02-03] MEDS: ODEFSEY PO SCH (09:54)
[2017-02-03] MEDS: ADMIXTURE FEE IVP SCH (20:10)
[2017-02-03] MEDS: SODIUM CHLORIDE IVP SCH (20:10)
[2017-02-03] MEDS: ONDANSETRON IVP SCH (20:10)
[2017-02-03] MEDS: ETOPOSIDE IVPB SCH (21:02)
[2017-02-03] MEDS: SODIUM CHLORIDE IVPB SCH (21:02)
[2017-02-03] MEDS: ADMIXTURE FEE IVPB SCH ×2 (21:02→22:23)
[2017-02-03] MEDS: DOXORUBICIN IVPB SCH (22:23)
[2017-02-03] MEDS: VINCRISTINE SULFATE IVPB SCH (22:23)
[2017-02-03] MEDS: [UNRECOGNIZED DRUG - OTHER] IVPB SCH (22:23)
[2017-02-04] MEDS: Promethazine HCl 25 MG/ML VIAL SLOW IVP PRN (00:52)
[2017-02-04] MEDS: Ondansetron HCl/PF 8 MG, Admixture Fee 1 EACH in Sodium Chloride 0.9% 50 ML IVPB SCH ×2 (04:42→11:53)
[2017-02-04] MEDS ORDERED: Fosaprepitant Dimeglumine 150 MG, Admixture Fee 1 EACH in Sodium Chloride 0.9% 250 ML 1... IVPB SCH (09:00)
[2017-02-04] MEDS ORDERED: SODIUM CHLORIDE IVPB SCH (10:00)
[2017-02-04] MEDS ORDERED: Pegfilgrastim 6 MG/0.6 ML Delivery Kit SQ SCH (10:00)
[2017-02-04] MEDS ORDERED: ADMIXTURE FEE IVPB SCH (10:00)
[2017-02-04] MEDS ORDERED: CYCLOPHOSPHAMIDE IVPB SCH (10:00)
[2017-02-04] MEDS ORDERED: Palonosetron HCl 0.25 MG, Admixture Fee 1 EACH in Sodium Chloride 0.9% 50 ML IVPB SCH (10:00)
[2017-02-04] MEDS: predniSONE 20 MG TAB PO SCH (11:25)
[2017-02-04] MEDS ORDERED: Sulfameth/Trimethoprim DS 800-160mg TAB PO SCH (11:30)
[2017-02-04] MEDS: Sulfameth/Trimethoprim DS 800-160mg TAB PO SCH (11:33)
[2017-02-04] MEDS: ODEFSEY PO SCH (11:34)
[2017-02-04 16:04] VITALS: BP 109/60; TEMP 98.8
== END 2017-02-04 18:14 | disposition home or self-care (01) | DRG 846 ==
LOC: ONC 06:57
PROVIDERS: ADMIT Internal Medicine Hematology & Oncology; ATTEND Internal Medicine Hematology & Oncology
DX: Z51.11 Encounter for antineoplastic chemotherapy (principal); B20 Human immunodeficiency virus [HIV] disease; C83.34 Diffuse large B-cell lymphoma, lymph nodes of axilla and upper limb; Z95.828 Presence of other vascular implants and grafts; Z88.6 Allergy status to analgesic agent
CPT/HCPCS: 80053; 85025; 96377; A4216; J1100; J1200; J1453; J2405; J2469; J2505; J2550; J7050; J7506; J9000; J9070; J9181; J9310; J9370; S0028

== ENCOUNTER 2017-02-15 07:28 | Outpatient (CLI) | payer BC ==
--- NOTE | 2017-02-15 15:25 | PET ---
PET CT: HISTORY: 37-year-old male with diffuse large B cell lymphoma. Last chemotherapy on 02/04/17. Exam requested fo r restaging. Patient is HIV positive. TECHNIQUE: PET scanning with CT attenuation correction was performed from the base of the brain through the prox imal thighs following the intravenous administration of 14.9 mCi F18-FDG in the left antecubital adam a. Imaging was performed after an uptake interval of 49 minutes. COMPARISON: PET CT dated 11/23/16. FINDINGS: No cady hypermetabolism is seen in the neck, chest, axilla, abdomen, pelvis, or inguinal regions. Th ere has been interval resolution of hypermetabolic activity in the cervical and right axillary lymph nodes noted on the previous study. No hypermetabolic pulmonary nodules, liver, adrenal, or skeletal lesions are seen. There is physiologic activity in the GI and tracts, and the visualized portions of the brain. IMPRESSION: Excellent response to therapy with complete resolution since 11/23/16. POS: VESTA
== END 2017-02-15 07:29 | disposition home or self-care (01) ==
LOC: PET 07:28
PROVIDERS: ATTEND Internal Medicine Hematology & Oncology
DX: C85.90 Non-Hodgkin lymphoma, unspecified, unspecified site (principal)
CPT/HCPCS: 78815; A9552

== ENCOUNTER 2018-12-01 07:28 | Outpatient (CLI) | payer OTHER ==
--- NOTE | 2018-12-01 09:28 | PET ---
EXAM: PET CT skull to mid thigh COMPARISON: 11/17/2017 HISTORY: B-cell lymphoma TECHNIQUE: A PET/CT was performed from the skull to the mid thigh after administration of 11.1 millic uries of F-18 FDG. Evaluation was performed on a [employer] workstation. FINDINGS: NECK: There is a 1.2 cm right cervical hypermetabolic lymph node with maximum SUV value of 3.2. There is a 9 mm hypermetabolic left cervical lymph node with max SUV value of 3.6.These lymph nodes are in zone 3. There is persistent hypermetabolic activity in the bilateral palatine tonsils with max SUV value of 10.3. CHEST: No areas of hypermetabolic activity ABDOMEN/PELVIS: No areas of hypermetabolic activity SKELETON: No areas of hypermetabolic activity CT images used for attenuation correction show no significant abnormality. IMPRESSION: 1. Recurrence of hypermetabolic activity within cervical lymph nodes 2. Nonspecific hypermetabolic activity within the palatine tonsils.
== END 2018-12-01 07:29 | disposition home or self-care (01) ==
LOC: PET 07:28
PROVIDERS: ATTEND Internal Medicine Hematology & Oncology
DX: C83.34 Diffuse large B-cell lymphoma, lymph nodes of axilla and upper limb (principal)
CPT/HCPCS: 78815; A9552

== ENCOUNTER 2018-12-08 10:33 | Outpatient (CLI) | payer BC ==
--- NOTE | 2018-12-08 12:10 | CT ---
CT neck with IV contrast: 12/08/2018 COMPARISON: PET/CT performed 12/01/2018 HISTORY: Abnormal PET/CT, assess for lymphadenopathy, history of B-cell lymphoma TECHNIQUE: Axial CT imaging obtained at 0.5 mm intervals from the skull base through the lung apices with IV contrast. Coronal and sagittal reformatted imaging obtained. FINDINGS: The visualized paranasal sinuses and mastoid air cells are well aerated. The retroantral fat and parapharyngeal fat appears clear bilaterally. Bilateral submandibular glands and parotid glands are unremarkable. The visualized lung apices appear unremarkable. A Port-A-Cath is present inserted via a left-sided approach, distal tip within the superior vena cava . The vascular structures are patent. The level of the tonsillar pillars, epiglottis and preepiglottic fat, hyoid bone, thyroid cartilage, cricoid cartilage, glottis, and thyroid gland unremarkable. Multiple subcentimeter nonenlarged level 5/posterior triangle lymph nodes are seen bilaterally. In ad dition, within the superior most aspect of the posterior triangle on the left just medial to the sternocleidomastoid muscle there is a node measuring 8 mm in short axis dimension and 1.4 cm in long axis dimension, which correlates with the abnormality seen on recent PET. On axial image 299, there is a mildly enlarged level 2 lymph node on the right just medial to the nino rnocleidomastoid muscle and anterior to the internal jugular vein, measuring 1.1 cm in short axis dimension. This correlates with finding on recent PET/CT. . The 2 hypervascular lymph nodes seen on the recent PET/CT appears stable in size compared to the PET/ CT performed 11/23/2016. IMPRESSION: There is a lymph node on the right within level 2A which correlates with the FDG avid lym ph node on the recent PET/CT. This node is similar in size compared to multiple prior PET/CT examinations dating back to 11/23/2016. Given stability in size, correlation with SUV values is essent ial to assess the possibility of recurrent disease. There is a mildly enlarged lymph node within the superior aspect of the left posterior triangle, magy elating with the FDG avid lymph node seen on recent PET/CT. This lymph node is similar compared to the 11/23/2016 PET/CT. It was smaller on the 02/15/2017 PET/CT and 11/17/2017 PET/CT. This is suspicious for recurrent disease. The palatine tonsils demonstrate a stable appearance when compared to multiple prior examinations
== END 2018-12-08 10:34 | disposition home or self-care (01) ==
LOC: BICCT 10:33
PROVIDERS: ATTEND Internal Medicine Hematology & Oncology
DX: C83.34 Diffuse large B-cell lymphoma, lymph nodes of axilla and upper limb (principal); R93.7 Abnormal findings on diagnostic imaging of other parts of musculoskeletal system; R59.0 Localized enlarged lymph nodes
CPT/HCPCS: 70491

== ENCOUNTER 2019-02-23 08:04 | Outpatient (CLI) | payer BC ==
--- NOTE | 2019-02-23 09:21 | CT ---
EXAM: CT NECK SOFT TISSUE POST CONTRAST: HISTORY: Lymphoma. COMPARISON: 12/08/2018. FINDINGS: Brain parenchyma: No pathologic enhancement of the visualized brain parenchyma. Sinuses: Adequate aeration of the visualized paranasal sinuses and mastoid air cells. Nasopharynx:Adequate aeration. No mucosal abnormality. Oral cavity:Aerodigestive tract is patent. No mucosal abnormality. Limited evaluation of the oral cav ity due to dental amalgam artifact. Midline fatty raphae of the tongue is preserved. Hypopharynx: No mucosal abnormality. Larynx: No mucosal abnormality. Paraspinal muscles: Symmetric attenuation of the paraspinal muscles and symmetric attenuation of the sternocleidomastoid muscles.. Parotid and salivary glands: Symmetric attenuation of the parotid and submandibular glands. Thyroid gland: Unremarkable.. Spine: Vertebral body height is maintained. No fracture. No significant central canal stenosis or sig nificant neural foraminal narrowing. Limited evaluation due to technique. Lymph nodes: Right neck: Redemonstration of a level 2 lymph node, currently measuring 0.9 x 1.2 cm. Previously measuring 1.0 x 1.6 cm. Left neck: Redemonstration of an upper normal level 2 lymph node currently measuring 0.6 x 1.0 cm. Pr eviously, lymph node measured 1.0 x 0.8 cm. Redemonstration of a level 5 lymph node currently measuring 0.7 x 1.2 cm. Previously, lymph node measured 1.1 x 0.6 cm. Additional scattered left neck lymph nodes are noted. Lung apices and upper mediastinum: No acute abnormality. IMPRESSION: Essentially stable bilateral soft tissue neck lymph nodes. No new enlarged lymph nodes are appreciate d. Transcribed Date/Time: 02/23/2019 9:45 AM
[2019-02-23] MEDS ORDERED: Iopamidol-370 76% 500 ML 1 ML ONE (10:46)
== END 2019-02-23 08:05 | disposition home or self-care (01) ==
LOC: BICCT 08:04
PROVIDERS: ATTEND Internal Medicine Hematology & Oncology
DX: C83.34 Diffuse large B-cell lymphoma, lymph nodes of axilla and upper limb (principal)
CPT/HCPCS: 70491

== ENCOUNTER 2020-02-22 08:18 | Outpatient (CLI) | payer BC ==
--- NOTE | 2020-02-22 11:25 | PET ---
EXAM: PET/CT HISTORY: History of diffuse large B-cell lymphoma; restaging evaluation TECHNIQUE: PET scanning with CT attenuation correction was performed from the base of the brain to the proximal thighs following the intravenous administration of 11.7 millicuries [id number]. COMPARISON: Prior PET/CT dated December 01, 2018 FINDINGS: Biodistribution:The biodistribution for the exam appears acceptable. Head and neck: There is appropriate background activity within the brain. There is persistent hypermetabolic activity involving the palatine tonsils bilaterally. The peak acti vity involving the right palatine tonsil is 14.66, where previously it measured 13.47. Peak activity in the left palatine tonsil is 11.97, where previously it measured 9.39. The index hypermetabolic lymph node within the right level 2A position measuring 1.2 cm demonstrates a peak activity of 3.87 and a mean activity of 3.64 where previously the peak activity was 4.6 with a mean activity of 4.17. There is a mildly hypermetabolic left level 2A lymph node with a peak activity of 3.19 and a mean act ivity 2.8. Previously the peak activity was 2.03 and a mean activity 1.99. There is a left level IIb lymph node with a peak activity of 4.8 and a mean activity 3.95. Previous p eak activity was 6.33 mean activity of 5.59. There is a right 1B lymph node with a peak activity of 2.07 and a mean activity 2.0. This had a previ ous peak activity of 3.08 and a mean activity of 2.92 Thorax: No hypermetabolic pulmonary lesion, pleural effusion or lymphadenopathy is present. Abdomen and pelvis: There is expected background activity within the GI and systems. No hypermetab olic mass, lymphadenopathy or ascites is present. Osseous structures and skin: No hypermetabolic skin or osseous lesion is identified. IMPRESSION: Abnormal PET/CT 1. Findings of mixed response to therapy. There is slight increase metabolic activity involving the p alatine tonsils and left level 2A lymph nodes. There is diminished hypermetabolic activity seen within the right level IIa lymph nodes, left level IIb lymph nodes and right level 1B lymph nodes. Co ntinued follow-up is recommended.
== END 2020-02-22 08:19 | disposition home or self-care (01) ==
LOC: PET 08:18
PROVIDERS: ATTEND Internal Medicine Hematology & Oncology
DX: C83.30 Diffuse large B-cell lymphoma, unspecified site (principal); R59.0 Localized enlarged lymph nodes
CPT/HCPCS: 78815; A9552